=== PATIENT | female | born 1975 | race Hispanic/Latino ===

== ENCOUNTER 2016-08-15 10:14 | Day surgery (SDC) | payer BC ==
[~2016-08-15 10:14] MED LIST: ANCEF/STERILE WATER 2 GM/20 ML 20 ML IV NR; NACL 0.9% 1000 ML 1,000 ML IV SCH
[2016-08-15] MEDS ORDERED: NACL 0.9% 500 ML 500 ML IV SCH (11:00)
[2016-08-15 11:26] LABS: Eosinophils % (Auto) 2.2 % (0.0-4.3); Hemoglobin 15.2 gm/dl (10.1-14.3); White Blood Count 11.2 K/mm3 (4.5-11.0)
[2016-08-15 11:32] LABS: Hematocrit 46.1 % (30.3-42.9); Mean Corpuscular HGB Conc 34 % (30-34); Mean Corpuscular Hemoglobin 30 pg (28-32); Mean Corpuscular Volume 91 fl (79-97); Platelet Count 219 K/mm3 (140-440); Red Blood Count 5.08 M/mm3 (3.65-5.03); Red Cell Distribution Width 12.9 % (13.2-15.2)
[2016-08-15 11:35] LABS: INR 0.97 (0.87-1.13)
[2016-08-15 11:36] LABS: Partial Thromboplastin Time 28.1 Sec. (24.2-36.6)
[2016-08-15 11:47] LABS: Alanine Aminotransferase 10 units/L (7-56); Albumin 3.9 g/dL (3.9-5); Albumin/Globulin Ratio 1.3 %; Alkaline Phosphatase 88 units/L (35-129); Anion Gap 17 mmol/L; BUN/Creatinine Ratio 13.75; Bilirubin,Total 0.3 mg/dL (0.1-1.2); Blood Urea Nitrogen 11 mg/dL (7-17); Calcium 8.8 mg/dL (8.4-10.2); Carbon Dioxide 22 mmol/L (22-30); Chloride 103.5 mmol/L (98-107); Glucose 101 mg/dL (65-100); Potassium 4.3 mmol/L (3.6-5.0); Sodium 138 mmol/L (137-145)
--- NOTE | 2016-08-15 12:59 | Cat Scan Report ---
CT ABDOMEN AND PELVIS WITHOUT CONTRAST: HISTORY: Hydronephrosis, nephrolithiasis, abdominal pain. FINDINGS: Both kidneys are normal size, contour and position. Bilateral nephrolithiasis is identified. A 1.6 x 0.9 cm ovoid stone is located in the right renal pelvis. There is no significant associated hydronephrosis. There is also a 1 cm calyceal stone in the inferior left kidney. 4 punctate calyceal stones are noted in the mid and superior left kidney. Again, there is no associated hydronephrosis. No ureteral stones. The bladder is partially empty and unremarkable. Normal liver, biliary system, pancreas, spleen, adrenal glands, aorta, bowel loops, uterus and adnexa. Normal appendix. No evidence for ascites, adenopathy, free air or inflammatory changes. Heart size is normal. The visualized lung bases are clear. No acute bony findings. IMPRESSION: Bilateral nephrolithiasis, as outlined above. No associated hydronephrosis is appreciated on CT.
[2016-08-15] MEDS ORDERED: NACL 0.9% 500 ML IR ONE (13:23)
[2016-08-15] MEDS ORDERED: LEVAQUIN 500MG/100ML 100 ML IV ONE (13:23)
[2016-08-15] MEDS ORDERED: XYLOCAINE 2% INFILTRATI ONE (13:23)
[2016-08-15] MEDS: VERSED ONE ×2 (13:34→13:38)
[2016-08-15] MEDS: SUBLIMAZE ONE ×5 (13:34→14:22)
[2016-08-15] MEDS ORDERED: BENADRYL ONE (13:56)
[2016-08-15] MEDS ORDERED: VERSED ONE (14:07)
[2016-08-15] MEDS ORDERED: MORPHINE IV ONE (15:10)
--- NOTE | 2016-08-15 15:12 | Short Stay Summary ---
Short Stay Documentation Date of service: 08/15/16 - History Principal diagnosis: Obstructive Hydronephrosis Past Medical History: other (renal stones) Past Surgical History: Other (lithotripsy) Social history: no significant social history - Allergies and Medications Current Medications: Allergies cephalexin monohydrate [From Keflex] Allergy (Verified 08/12/16 10:08) Hives hydrocodone Allergy (Verified 08/12/16 10:08) Itching sulfamethoxazole [From Bactrim] Allergy (Verified 08/12/16 10:08) Anaphylaxis trimethoprim [From Bactrim] Allergy (Verified 08/12/16 10:08) Anaphylaxis Home Medications Medication Instructions Recorded Confirmed Last Taken Type No Known Home Medications [No 08/12/16 08/12/16 Unknown History Reported Home Medications] Active Medications Sodium Chloride (Nacl 0.9% 500 Ml) 500 mls @ 50 mls/hr IV DIRECT BRENT Last Admin: 08/15/16 12:09 Dose: 50 mls/hr - Physical exam General appearance: no acute distress Integumentary: no rash Lungs: Normal air movement Breasts: deferred Heart: Regular rate Gastrointestinal: normal Female Genitourinary: deferred Rectal Exam: deferred Extremities: no ischemia Neurological: Normal gait, Normal speech, Normal tone - Brief post op/procedure progress note Date of procedure: 08/15/16 Pre-op diagnosis: right nephrolithiasis Post-op diagnosis: same Procedure: 5-Fn ureteral pigtail placement 8-F neph tube placement Anesthesia: local Surgeon: KINSEY SWEENEY Estimated blood loss: minimal Pathology: none Condition: stable - Disposition Condition at discharge: Good Disposition: DISCHARGED TO HOME OR SELFCARE Short Stay Discharge Plan Activity: advance as tolerated Weight Bearing Status: Weight Bear as Tolerated Diet: regular Wound: keep clean and dry, per your surgeon's advice
--- NOTE | 2016-08-15 15:19 | Operative Report ---
Operative Report Operative Report: EXAM: ULTRASOUND AND FLUOROSCOPIC GUIDED PLACEMENT OF NEPHROSTOMY TUBE, ULTRASOUND AND FLUOROSCOPIC GUIDED PLACEMENT OF NEPHRO-URETERAL STENT CLINICAL INDICATION: PATIENT WITH RIGHT OBSTRUCTIVE NEPHROLITHIASIS DATE: 08/15/2016 PROCEDURE: Following an expiration of the risks, benefits and alternatives; written informed consent was obtained. The patient was brought to the angiographic suite and placed in prone position on the examination table. Initial ultrasound survey of her right kidney demonstrated a stone in the renal pelvis. No obstructive hydronephrosis is identified. The patient's right back and flank were prepped and draped in the usual sterile fashion. 1% lidocaine was used for anesthesia. Under ultrasound guidance, anterior inferior calyx was cannulated with a 15 cm 21-gauge needle. A 0.018 guidewire was advanced centrally and renal pelvis. The needle was removed and an AccuStick transition dilator placed over the guidewire and advanced to the renal pelvis. A nephrostogram was performed which demonstrated dishing of the catheter and guidewire medially, therefore a decision was made for a second access. Additional access was obtained using views and a [place]eter 21-gauge needle. Ultimately, the posterior inferior calyx was cannulated and a 0.018 guidewire advanced into the renal pelvis. The needle was removed and a AccuStick transition dilator placed over the guidewire and advanced to the renal pelvis. Nephrostogram was performed which demonstrated adequate positioning. The 0.018 guidewire was exchanged for a 0.035 guidewire which was advanced through the dilator into the bladder under fluoroscopy. Transition dilator was removed. A 7 [place] sheath was then placed over the guidewire and advanced to the renal pelvis. A second guidewire was then placed through the sheath and advanced to the bladder under fluoroscopy. The sheath was removed. A 5 [place] pigtail catheter was placed over one of the guidewires and advanced to the bladder. The guidewire was removed. An 8 [place] nephrostomy tube was placed over the second guidewire and advanced to position the pigtail within the renal pelvis. Gentle injection of contrast documented appropriate positioning within the renal pelvis. At this point, the guidewire was removed and the catheter securely fastened of the skin surface using a StatLock device. Sterile dressings were then applied. The patient tolerated the procedure well. There were no immediate post procedure complications. Conscious sedation was performed under the guidance of radiologic nursing. Continuous cardiopulmonary monitoring was utilized. IMPRESSION: 1) Ultrasound evaluation of kidney demonstrating no hydronephrosis with a renal pelvic stone. 2) Ultrasound and fluoroscopic guided placement of a nephrostomy tube. 3) Ultrasound and fluoroscopic guided placement of a nephroureteral stent.
[2016-08-15] MEDS ORDERED: PERCOCET 5/325 PO ONE (16:05)
[2016-08-15 17:16] VITALS: BP 117/67
== END 2016-08-15 17:50 | disposition home or self-care (01) ==
LOC: OPU 10:14
PROVIDERS: ATTEND Radiology Diagnostic Radiology
DX: N20.0 Calculus of kidney (principal); F17.200 Nicotine dependence, unspecified, uncomplicated; Z98.890 Other specified postprocedural states
CPT/HCPCS: 36415; 50432; 74176; 80053; 85025; 85610; 85730; 96374; C1729; C1751; C1769; C1887; C1894; J1200; J1956; J2250; J2270; J3010; J7040; Q9967

== ENCOUNTER 2016-08-30 23:31 | Emergency (ER) | payer BC ==
[2016-08-30 23:49] VITALS: BP 117/80
[2016-08-31 00:10] LABS: Basophils % (Auto) 0.8 % (0.0-1.8); Eosinophils % (Auto) 2.4 % (0.0-4.3); Hematocrit 45.4 % (30.3-42.9); Hemoglobin 15.2 gm/dl (10.1-14.3); Mean Corpuscular HGB Conc 34 % (30-34); Mean Corpuscular Hemoglobin 31 pg (28-32); Mean Corpuscular Volume 92 fl (79-97); Platelet Count 268 K/mm3 (140-440); Red Blood Count 4.92 M/mm3 (3.65-5.03); Red Cell Distribution Width 13.4 % (13.2-15.2); White Blood Count 17.9 K/mm3 (4.5-11.0)
[2016-08-31 00:21] LABS: Bilirubin,Urine NEG (Negative); Blood,Urine SM (Negative); Ketones,Urine NEG (Negative); Leukocyte Esterase,Urine NEG (Negative); Mucus,Urine FEW /HPF; Nitrite,Urine NEG (Negative); Protein,Urine <15 mg/dL mg/dL (Negative); RBC,Urine < 1.0 /HPF (0.0-6.0); Urobilinogen,Urine < 2.0 mg/dL (<2.0)
[2016-08-31 00:29] LABS: Blood Urea Nitrogen 10 mg/dL (7-17); Carbon Dioxide 20 mmol/L (22-30); Chloride 103.8 mmol/L (98-107); Glucose 96 mg/dL (65-100); Potassium 4.1 mmol/L (3.6-5.0); Sodium 138 mmol/L (137-145)
[2016-08-31 00:31] LABS: Anion Gap 18 mmol/L
--- NOTE | 2016-09-01 18:15 | ED Elopement Review ---
ED Pt Elopement review - Results review Lab results: Laboratory Tests 08/30/16 08/30/16 08/30/16 23:55 23:56 23:56 WBC 17.9 H RBC 4.92 Hgb 15.2 H Hct 45.4 H MCV 92 MCH 31 MCHC 34 RDW 13.4 Plt Count 268 Lymph % (Auto) 21.6 Chaves % (Auto) 4.4 Eos % (Auto) 2.4 Baso % (Auto) 0.8 Lymph # 3.9 Chaves # 0.8 Eos # 0.4 Baso # 0.2 H Seg Neutrophils % 70.8 H Seg Neutrophils # 12.7 H Sodium 138 Potassium 4.1 Chloride 103.8 Carbon Dioxide 20 L Anion Gap 18 BUN 10 Creatinine 0.8 Estimated GFR > 60 BUN/Creatinine Ratio 12.50 Glucose 96 Lactic Acid Calcium 9.0 Urine Color Yellow Urine Turbidity Clear Urine pH 6.0 Ur Specific [place] 1.003 Urine Protein <15 mg/dl Urine Glucose (UA) Neg Urine Ketones Neg Urine Blood Sm Urine Nitrite Neg Urine Bilirubin Neg Urine Urobilinogen < 2.0 Ur Leukocyte Esterase Neg Urine WBC (Auto) 1.0 Urine RBC (Auto) < 1.0 U Epithel Cells (Auto) 10.0 Urine Mucus Few 08/30/16 23:56 WBC RBC Hgb Hct MCV MCH MCHC RDW Plt Count Lymph % (Auto) [place] % (Auto) Eos % (Auto) Baso % (Auto) Lymph # Chaves # Eos # Baso # Seg Neutrophils % Seg Neutrophils # Sodium Potassium Chloride Carbon Dioxide Anion Gap BUN Creatinine Estimated GFR BUN/Creatinine Ratio Glucose Lactic Acid 0.8 Calcium Urine Color Urine Turbidity Urine pH Ur Specific [place] Urine Protein Urine Glucose (UA) Urine Ketones Urine Blood Urine Nitrite Urine Bilirubin Urine Urobilinogen Ur Leukocyte Esterase Urine WBC (Auto) Urine RBC (Auto) U Epithel Cells (Auto) Urine Mucus - Call Back decision Pt Call Back Decision: Call pt to return to ED OSK[facility] (tachycardia and leukocytosis should be further evaluated)
== END 2016-08-31 03:15 | disposition left against medical advice (07) ==
LOC: ED 23:31
DX: R50.9 Fever, unspecified (principal); Z53.21 Procedure and treatment not carried out due to patient leaving prior to being seen by health care provider
CPT/HCPCS: 36415; 80048; 81001; 82140; 85025

== ENCOUNTER 2017-08-10 12:04 | Day surgery (SDC) | payer BC ==
[~2017-08-10 12:04] MED LIST changes: -ANCEF/STERILE WATER 2 GM/20 ML 20 ML IV NR; +PEPCID PO NR; +VERSED IV NR
[2017-08-10] MEDS ORDERED: ZOFRAN IV PRN (13:26)
[2017-08-10] MEDS ORDERED: PERCOCET 5/325 PO PRN (13:26)
[2017-08-10] MEDS ORDERED: MORPHINE IV PRN (13:26)
--- NOTE | 2017-08-10 13:26 | Anesthesia Day of Surgery ---
Anesthesia Day of Surgery - Day of Surgery Patient Examined: Yes Patient is NPO: Yes
--- NOTE | 2017-08-10 13:26 | Anesthesia Consultation ---
Anesthesia Consult and Med Hx Date of service: 08/10/17 - Airway Anesthetic Teeth Evaluation: Good, Dentures (bottom) ROM Head & Neck: Adequate Mental/Hyoid Distance: Adequate Mallampati Class: Class II Intubation Access Assessment: Probably Good - Pulmonary Exam CTA: Yes - Cardiac Exam Cardiac Exam: RRR - Pre-Operative Health Status ASA Pre-Surgery Classification: ASA2 Proposed Anesthetic Plan: General - Pulmonary Hx Smoking: Yes (1PPDx 21 years) Hx Respiratory Symptoms: No Hx Pneumonia: No Hx Sleep Apnea: No (KINJAL PRE SCREEN NEGATIVE) - Cardiovascular System Hx Hypertension: No - Central Nervous System Hx Back Pain: Yes (FROM STONE) Hx Psychiatric Problems: No - Gastrointestinal Hx Gastroesophageal Reflux Disease: No - Hematic Hx Anemia: No Hx Sickle Cell Disease: No - Other Systems Hx Alcohol Use: No Hx Substance Use: No Hx Cancer: No Hx Obesity: No
[2017-08-10] MEDS ORDERED: DILAUDID ONE (14:04)
[2017-08-10] MEDS ORDERED: DIPRIVAN 10 MG/ML IV ONE (14:04)
[2017-08-10] MEDS ORDERED: DECADRON ONE (14:17)
[2017-08-10] MEDS ORDERED: XYLOCAINE MPF 2% ONE (14:17)
[2017-08-10] MEDS ORDERED: TORADOL ONE (14:17)
[2017-08-10] MEDS ORDERED: ZOFRAN ONE (14:17)
[2017-08-10] MEDS ORDERED: GARAMYCIN 80 MG in NACL 0.9% 100 ML IV ONE (14:23)
--- NOTE | 2017-08-10 15:06 | Short Stay Summary ---
Short Stay Documentation Date of service: 08/10/17 - History H&P: obtained from office - Allergies and Medications Current Medications: Allergies cephalexin monohydrate [From Keflex] Allergy (Verified 08/12/16 10:08) Hives hydrocodone Allergy (Verified 08/12/16 10:08) Itching sulfamethoxazole [From Bactrim] Allergy (Verified 08/12/16 10:08) Anaphylaxis trimethoprim [From Bactrim] Allergy (Verified 08/12/16 10:08) Anaphylaxis Home Medications Medication Instructions Recorded Confirmed Last Taken Type oxyCODONE /ACETAMINOPHEN [Percocet 1 tab PO Q6HR PRN #25 tablet 08/15/1608/09/17 Rx 5/325] Active Medications Famotidine (Pepcid) 20 mg PO PREOP NR Stop: 08/10/17 23:00 Last Admin: 08/10/17 13:52 Dose: 20 mg Sodium Chloride (Nacl 0.9% 1000 Ml) 1,000 mls @ 75 mls/hr IV DIRECT BRENT Last Admin: 08/10/17 13:53 Dose: 75 mls/hr Midazolam HCl (Versed) 2 mg IV PREOP NR Stop: 08/10/17 23:59 Last Admin: 08/10/17 14:26 Dose: 2 mg Morphine Sulfate (Morphine) 2 mg IV Q10MIN PRN PRN Reason: Pain, Moderate (4-6) Ondansetron HCl (Zofran) 4 mg IV ONCE PRN PRN Reason: Nausea And Vomiting Oxycodone/Acetaminophen (Percocet 5/325) 1 tab PO ONCE PRN PRN Reason: Pain, Moderate (4-6) - Brief post op/procedure progress note Date of procedure: 08/10/17 Pre-op diagnosis: left renal stone Post-op diagnosis: same Procedure: left eswl Anesthesia: GETA Surgeon: CARROLL EASTON Estimated blood loss: none Condition: stable - Hospital course Hospital course: percocet 10/325,flomax,strainer,post op info - Disposition Condition at discharge: Stable Disposition: DC-01 TO HOME OR SELFCARE Short Stay Discharge Plan Follow up with: GRISELDA BLACKWOOD MD [Primary Care Provider] - 7 Days
--- NOTE | 2017-08-10 15:44 | Operative Report ---
PREOPERATIVE DIAGNOSIS: Left renal stone. POSTOPERATIVE DIAGNOSIS: Left renal stone. PROCEDURE: Left extracorporal shock wave lithotripsy. SURGEON: Bishnu Collins M.D. ANESTHESIA: General. ESTIMATED BLOOD LOSS: Minimal. FLUIDS: Crystalloid. COMPLICATIONS: No complications. INDICATIONS: This patient is a 41-year-old female, seen by Dr. Valdes, in the office with a history of recurrent stone. CT of abdomen and pelvis, KUB confirmed a 9 mm stone. Discussed options. The patient agreed to proceed with surgical intervention. We also had a discussion regarding a stent and she elected to undergo straight lithotripsy without stent. She has had them before and preferred to have this procedure without a stent. DESCRIPTION OF PROCEDURE: The patient was taken to the operative suite, placed in a supine position. After adequate general anesthesia, her stone was localized in 2 planes using fluoroscopy. Extracorporal shock wave lithotripsy was administered with a maximum kV of 5 and 2500 shocks. Adequate fragmentation could be appreciated. The patient tolerated the procedure well. She was extubated and taken to recovery room. She will go home on Percocet, Flomax and strain her urine for stone. JOB# [id number] MAE/GENESIS
[2017-08-10 15:52] VITALS: BP 121/73
--- NOTE | 2017-08-10 18:15 | Post Anesthesia Evaluation ---
- Post Anesthesia Evaluation Patient Participated: Yes Airway Patent: Yes Stable Respiratory Function: Yes Nausea/Vomiting: No Temp > 96.8F: Yes Pain Manageable: Yes Adequeate Hydration: Yes Anesthesia Complications: No Block Receding Appropriately: Not Applicable Patient on Ventilator: No
== END 2017-08-10 16:35 | disposition home or self-care (01) ==
LOC: OR 12:04
PROVIDERS: ATTEND Urology
DX: N20.0 Calculus of kidney (principal); I10 Essential (primary) hypertension; F17.210 Nicotine dependence, cigarettes, uncomplicated; Z88.2 Allergy status to sulfonamides; Z88.8 Allergy status to other drugs, medicaments and biological substances; Z79.899 Other long term (current) drug therapy
CPT/HCPCS: 50590; J1170; J1580; J1885; J2250; J2405; J2704; J7030; J1100

== ENCOUNTER 2017-11-16 06:19 | Day surgery (SDC) | payer BC ==
[~2017-11-16 06:19] MED LIST changes: -NACL 0.9% 1000 ML 1,000 ML IV SCH; -PEPCID PO NR; +TETRACAINE 0.5% OS PRN; -VERSED IV NR
[2017-11-16] MEDS ORDERED: NARCAN 0.4 MG/1 ML IV PRN (07:58)
[2017-11-16] MEDS ORDERED: DILAUDID IV PRN ×2 (07:58)
[2017-11-16] MEDS ORDERED: DEMEROL IV PRN (07:58)
[2017-11-16] MEDS ORDERED: ZOFRAN IV PRN (07:58)
--- NOTE | 2017-11-16 07:58 | Anesthesia Consultation ---
Anesthesia Consult and Med Hx Date of service: 11/16/17 - Airway Anesthetic Teeth Evaluation: Poor, Dentures, Partials ROM Head & Neck: Adequate Mental/Hyoid Distance: Adequate Mallampati Class: Class I Intubation Access Assessment: Good - Pulmonary Exam CTA: Yes - Cardiac Exam Cardiac Exam: No Murmur - Pre-Operative Health Status ASA Pre-Surgery Classification: ASA2 - Pulmonary Hx Smoking: Yes (1/2PPD SINCE 96') Hx Respiratory Symptoms: No Hx Pneumonia: No Hx Sleep Apnea: No (KINJAL PRE SCREEN NEGATIVE) - Cardiovascular System Hx Hypertension: No - Central Nervous System Hx Back Pain: Yes (FROM STONE) Hx Psychiatric Problems: No - Gastrointestinal Hx Gastroesophageal Reflux Disease: No - Hematic Hx Anemia: No Hx Sickle Cell Disease: No - Other Systems Hx Alcohol Use: No Hx Substance Use: No Hx Cancer: No Hx Obesity: No
--- NOTE | 2017-11-16 07:58 | Anesthesia Day of Surgery ---
Anesthesia Day of Surgery - Day of Surgery Patient Examined: Yes Patient H&P Reviewed: Yes Patient is NPO: Yes
[2017-11-16] MEDS: VIGAMOX OS SCH ×3 (08:05→08:15)
[2017-11-16] MEDS: MYDRIACYL OS SCH ×3 (08:05→08:15)
[2017-11-16] MEDS: AK-Dilate OS SCH ×3 (08:05→08:15)
[2017-11-16] MEDS ORDERED: VERSED ONE (08:42)
[2017-11-16] MEDS ORDERED: SUBLIMAZE ONE (08:42)
--- NOTE | 2017-11-16 09:35 | Operative Report ---
Operative Report Operative Report: PATIENT'S NAME: DATE OF : DATE OF SURGERY: 11/16/2017 PREOPERATIVE DIAGNOSIS: Cataract left eye POSTOPERATIVE DIAGNOSIS: Same OPERATIVE PROCEDURE: Phacoemulsification with intraocular lens implantation, left eye SURGEON: Ariela Wang M.D. MANAGER OPERATIONAL SURGEON: Nakul Lens: [id number] 23.5 D ANESTHESIA: Monitored anesthesia care in combination with topical and intracameral anesthesia because of the established specific risk of reflux, arrhythmias, or anxiety attacks associated with ocular manipulation, as well as the difficulty of the nurse emergency room to manage such potentially catastrophic events while simultaneously attempting to complete the surgical procedure and was deemed necessary for the patient's safety to have an Senior Report Developer present during the procedure whenever possible. An Senior Report Developer was utilized to regulate the intravenous sedation of the patient so the patient was cooperative yet not asleep in order for the patient to successfully maintain fixation of the eye on the operating light of the microscope. COMPLICATIONS: No surgical complications No blood loss. ALLERGIES: N known drug allergies PROGNOSIS: Excellent INDICATIONS FOR SURGERY: The patient is undergoing surgery in the hopes of eliminating or improving these visual difficulties. PROCEDURE: After arriving at the surgery center, the patient was given topical anesthetic and dilating drops, as noted in the record. The patient was then taken into the operating room and given more anesthetic drops. The eyelids , lashes, and lid margins were scrubbed with Betadine solution, and the patient was draped. The Nurse Senior Report Developer administered IV sedation and monitored the patient during the procedure. The eye was then fixated with a 0.12, and a stab incision was made in the peripheral clear cornea into the anterior chamber. This was made on my left side. Viscoelastic was next used to fill the anterior chamber. The eye was once again fixated with the 0.12 forceps and a keratome was used make an incision in clear cornea peripherally on my right hand side temporally. The capsule forceps were used to open the central anterior capsule and then make a continuous round capsulotomy. Hydrodissection was carried out utilizing a cannula and balanced salt solution to delineate the cortical material from the capsule and the nucleus from the cortical material. The phaco tip was introduced into the eye and used to remove the anterior cortical material in the area of the capsulotomy. Then the phaco tip was buried into the nucleus, and a chopping instrument was introduced into the eye and used to provide countertraction in the nucleus between this instrument and the phaco tip fracturing the nucleus. This procedure was repeated multiple times, providing multiple small segments of the lens, and then the phaco tip was used to remove each of these segments. An I/A tip was then used to remove the remaining cortex. The anterior chamber was refilled with viscoelastic. An one-piece, acrylic intraocular lens was then placed into an inserting cartridge. The tip of the inserting cartridge was introduced into the keratome incision and into the anterior chamber. The implant was gently advanced through the cartridge and into the eye, where it unfolded, and both haptics were placed in the capsular bag, where it centered nicely and appeared to be well fixated. After placement of the intraocular lens, the I~and~A handpiece was placed back into the eye and used to remove the viscoelastic, including viscoelastic that was behind the optic of the intraocular lens. The anterior chamber was then filled with balanced salt solution, and hydration of the wound was used to cause swelling of the wound and more appropriate watertight closure. When the wound was found to be firm, the patient was asked to comment on how bright the light was. If there was no light perception at all or if the light was substantially dimmer than during the rest of the surgery, the amount of fluid in the eye was decompressed to lower the intraocular pressure until the patient could see the bright light again. This was done to avoid any damage or decreased blood flow to the optic nerve. MEDICATIONS APPLIED AT END OF SURGERY: One drop of Pred Forte and Vigamox The patient was given a shield to wear at night and was instructed not to rub or push on the eye. DISCHARGE SUMMARY: The patient was released in stable condition. The patient and those with the patient were given a written sheet of postoperative instructions and counseling on any abnormal laboratory studies. The patient is to see us tomorrow for follow-up in the office and is to call immediately for any difficulties. Ariela Wang M.D. Date
--- NOTE | 2017-11-16 09:38 | Short Stay Summary ---
Short Stay Documentation Date of service: 11/16/17 - History H&P: obtained from office - Allergies and Medications Current Medications: Allergies cephalexin monohydrate [From Keflex] Allergy (Verified 11/03/17 10:11) Hives hydrocodone Allergy (Verified 11/03/17 10:11) Itching sulfamethoxazole [From Bactrim] Allergy (Verified 11/03/17 10:11) Anaphylaxis trimethoprim [From Bactrim] Allergy (Verified 11/03/17 10:11) Anaphylaxis Home Medications Medication Instructions Recorded Confirmed Last Taken Type No Known Home Medications [No 11/03/17 11/03/17 Unknown History Reported Home Medications] Active Medications Acetazolamide (Diamox) 500 mg PO BID ONE Stop: 11/16/17 09:35 Hydromorphone HCl (Dilaudid) 0.25 mg IV Q10MIN PRN PRN Reason: Pain, Moderate (4-6) Stop: 11/16/17 16:00 Hydromorphone HCl (Dilaudid) 0.5 mg IV Q10MIN PRN PRN Reason: Pain , Severe (7-10) Stop: 11/16/17 16:00 Meperidine HCl (Demerol) 25 mg IV ONCE PRN PRN Reason: Shivering Stop: 11/16/17 16:00 Moxifloxacin HCl (Vigamox) 1 drops OS Q5MIN [facility] Stop: 11/18/17 06:01 Last Admin: 11/16/17 08:15 Dose: 1 drops Naloxone HCl (Narcan 0.4 Mg/1 Ml) 0.1 mg IV Q2MIN PRN PRN Reason: Res Rate </= 8 or 02 SAT < 92% Ondansetron HCl (Zofran) 4 mg IV ONCE PRN PRN Reason: Nausea And Vomiting Stop: 11/16/17 16:00 Phenylephrine HCl (Ak-Dilate) 1 drops OS Q5MIN BRENT Stop: 11/18/17 06:01 Last Admin: 11/16/17 08:15 Dose: 1 drops Prednisolone Acetate (Pred Forte 1%) 1 drops OS QID BRENT Tetracaine HCl (Tetracaine 0.5%) 1 drops OS Q5M PRN PRN Reason: Analgesia Last Admin: 11/16/17 08:05 Dose: 1 drops Tropicamide (Mydriacyl) 1 drops OS Q5MIN BRENT Stop: 11/18/17 06:01 Last Admin: 11/16/17 08:15 Dose: 1 drops - Brief post op/procedure progress note Date of procedure: 11/16/17 Pre-op diagnosis: LEFT CATARACT Post-op diagnosis: same Procedure: Phacoemulsification with intraocular lens insertion left eye Anesthesia: MAC, local Surgeon: SHERRY BURT Estimated blood loss: none Pathology: none Condition: stable - Disposition Condition at discharge: Good Disposition: DC-01 TO HOME OR SELFCARE - Discharge Diagnoses (1) Cataract Status: Acute Qualifiers: Cataract type: age-related Age-related cataract type: nuclear Laterality : left Qualified Code(s): H25.12 - Age-related nuclear cataract, left eye Short Stay Discharge Plan Follow up with: GRISELDA BLACKWOOD MD [Primary Care Provider] - 7 Days
[2017-11-16] MEDS ORDERED: PRED FORTE 1% OS SCH (10:00)
[2017-11-16] MEDS ORDERED: DIAMOX PO ONE (10:00)
[2017-11-16 10:15] VITALS: BP 114/70
--- NOTE | 2017-11-16 10:39 | Post Anesthesia Evaluation ---
- Post Anesthesia Evaluation Patient Participated: Yes Airway Patent: Yes Stable Respiratory Function: Yes Nausea/Vomiting: No Temp > 96.8F: Yes Pain Manageable: Yes Adequeate Hydration: Yes Anesthesia Complications: No
[2017-11-16] MEDS ORDERED: PRED FORTE 1% ONE (16:48)
== END 2017-11-16 10:00 | disposition home or self-care (01) ==
LOC: OR 06:19
DX: H26.9 Unspecified cataract (principal); F17.200 Nicotine dependence, unspecified, uncomplicated; Z88.2 Allergy status to sulfonamides; Z88.6 Allergy status to analgesic agent; Z88.1 Allergy status to other antibiotic agents
CPT/HCPCS: 66984; J2250; J3010; V2632